=== PATIENT | female | born 1985 | race Caucasian/White ===

== ENCOUNTER 2018-10-13 06:12 | Day surgery (SDC) | payer MEDICAID ==
[~2018-10-13 06:12] MED LIST: CEFAZOLIN 2 GM/50 ML (PMX) 50 ML IVPB; LACTATED RINGER'S 1,000 ML IV*
[2018-10-13] MEDS ORDERED: DEXAMETHASONE 4 MG/ML 1 ML INJ (07:00)
[2018-10-13 07:13] LABS: ADD MAN DIFF? NO
[2018-10-13] MEDS ORDERED: MIDAZOLAM 1 MG/ML 2 ML INJ (07:16)
[2018-10-13] MEDS ORDERED: FENTAnyl 50 MCG/ML VIAL ×2 (07:16→08:12)
[2018-10-13] MEDS ORDERED: CEFAZOLIN 1 GM INJ (07:16)
[2018-10-13] MEDS ORDERED: PROPOFOL 40 ML (07:16)
[2018-10-13] MEDS ORDERED: LIDOCAINE 2% (SDV) 5 ML INJ (07:16)
[2018-10-13] MEDS ORDERED: ROCURONIUM 50 MG INJ (07:16)
[2018-10-13 07:17] LABS: WHITE BLOOD COUNT 7.9 10^3/ul (4.8-10.8)
[2018-10-13 07:17] LABS: BASOPHILS % 0.3 % (0.0-2.0); EOSINOPHILS # 0.2 10^3/ul (0.0-0.5); EOSINOPHILS % 2.3 % (0.0-7.0); HEMATOCRIT 43.2 % (37.0-47.0); HEMOGLOBIN 14.1 g/dl (12.0-16.0); LYMPHOCYTES # 3.6 10^3/ul (0.8-2.9); LYMPHOCYTES % 45.1 % (15.0-51.0); MEAN CORPUSCULAR HEMOGLOBIN 29.3 pg (29.0-33.0); MEAN CORPUSCULAR HGB CONC 32.6 g/dl (32.0-37.0); MEAN CORPUSCULAR VOLUME 89.6 fl (82.0-101.0); MEAN PLATELET VOLUME 11.1 fl (7.4-10.4); MONOCYTE # 0.5 10^3/ul (0.3-0.9); MONOCYTES % 6.6 % (0.0-11.0); NEUTROPHIL # 3.6 10^3/ul (1.6-7.5); NEUTROPHILS % 45.4 % (39.0-77.0); PLATELET COUNT 224 10^3/UL (140-415); RED BLOOD COUNT 4.82 10^6/ul (4.20-5.40); RED CELL DISTRIBUTION WIDTH 13.3 % (11.5-14.5)
[2018-10-13] MEDS ORDERED: ONDANSETRON 4 MG INJ (07:17)
[2018-10-13] MEDS ORDERED: FAMOTIDINE 20 MG INJ (07:17)
[2018-10-13] MEDS ORDERED: MEPERIDINE 25 MG INJ IV (07:30)
[2018-10-13] MEDS ORDERED: morphine (1 MG/ML) 10ML SYRINGE IV ×2 (07:30)
[2018-10-13] MEDS ORDERED: FENTAnyl 50 MCG/ML VIAL IV ×2 (07:30)
[2018-10-13] MEDS ORDERED: OXYCODONE/ACETAMINOPHEN (5/325) TAB PO ×2 (07:30)
[2018-10-13] MEDS ORDERED: DIPHENHYDRAMINE 50 MG INJ IV (07:30)
[2018-10-13] MEDS ORDERED: LABETALOL HCL 20MG INJ IV (07:30)
[2018-10-13] MEDS ORDERED: ALBUTEROL 0.083% (NEB) 2.5 MG/3 ML AMP HHN (07:30)
[2018-10-13] MEDS ORDERED: HYDROmorphONE 1 MG/5 ML IV SYRINGE IV ×2 (07:30)
[2018-10-13] MEDS ORDERED: ONDANSETRON 4 MG INJ IV (07:30)
[2018-10-13 07:35] LABS: INR 0.88; PT RATIO 0.9
[2018-10-13 07:36] LABS: PARTIAL THROMBOPLASTIN TIME 31.5 Sec (23.0-35.0)
[2018-10-13] MEDS ORDERED: GLYCOPYRROLATE 0.4 MG INJ (07:52)
[2018-10-13] MEDS ORDERED: NEOSTIGMINE 3 MG/3 ML SYRINGE (07:52)
[2018-10-13] MEDS: BUPIVACAINE 0.25%/EPI (MDV) 50 ML VIAL INJ (07:58)
[2018-10-13] MEDS ORDERED: KETOROLAC 30 MG INJ (08:02)
== END 2018-10-13 09:45 | disposition home or self-care (01) ==
LOC: SDS 06:12
DX: Z30.2 Encounter for sterilization (principal)
CPT/HCPCS: 58670; 85025; 85610; 85730